=== PATIENT | male | born 1965 | race African-American/Black ===

== ENCOUNTER 2017-10-25 11:22 | Emergency (ER) | payer OTHER ==
--- NOTE | 2017-10-25 12:12 | ER Document Report ---
ED Medical Screen (RME) - General Chief Complaint: Flu Symptoms Stated Complaint: COUGH Time Seen by Provider: 10/25/17 12:10 Mode of Arrival: Ambulatory Information source: Patient TRAVEL OUTSIDE OF THE [place] IN LAST 30 DAYS: No - HPI Patient complains to provider of: cough, fever Onset: Other - pt . with c/o cough, fever, generalized arthralgias and myalgias for the past 2 days. Did not get flu shot this year - Related Data Allergies/Adverse Reactions: No Known Allergies Allergy (Verified 10/25/17 11:22) Physical Exam - Vital signs Vitals: Temp Pulse Resp BP Pulse Ox 100.4 F 97 16 122/77 94 10/25/17 11:27 10/25/17 11:27 10/25/17 11:27 10/25/17 11:27 10/25/17 11:27 Course - Vital Signs Vital signs: Temp Pulse Resp BP Pulse Ox 100.4 F 97 16 122/77 94 10/25/17 11:27 10/25/17 11:27 10/25/17 11:27 10/25/17 11:27 10/25/17 11:27
[2017-10-25 12:37] LABS: ABSOLUTE LYMPHOCYTES (AUTO) 1.1 10^3/uL (0.5-4.7); ABSOLUTE MONOCYTES (AUTO) 0.6 10^3/uL (0.1-1.4); ABSOLUTE NEUT (AUTO) 3.6 10^3/uL (1.7-8.2); BASOPHILS % (AUTO) 0.4 % (0-2); EOSINOPHILS % (AUTO) 0.5 % (0-6); HEMATOCRIT 50.4 % (37.9-51.0); HEMOGLOBIN 17.3 g/dL (13.5-17.0); LYMPHOCYTES % (AUTO) 20.1 % (13-45); MEAN CORPUSCULAR HEMOGLOBIN 29.6 pg (27.0-33.4); MEAN CORPUSCULAR HGB CONC 34.3 g/dL (32.0-36.0); MEAN CORPUSCULAR VOLUME 86 fl (80-97); MONOCYTES % (AUTO) 11.2 % (3-13); PLATELET COUNT 167 10^3/uL (150-450); RED BLOOD COUNT 5.85 10^6/uL (4.35-5.55); SEGMENTED NEUTROPHILS % (AUTO) 67.8 % (42-78); TOTAL CELLS COUNTED % (AUTO) 100 %; WHITE BLOOD COUNT 5.3 10^3/uL (4.0-10.5)
--- NOTE | 2017-10-25 12:38 | RADIOLOGY REPORT (SQ) ---
EXAM DESCRIPTION: CHEST PA/LAT COMPLETED DATE/TIME: 10/25/2017 12:29 pm REASON FOR STUDY: cough COMPARISON: None. TECHNIQUE: Frontal and lateral radiographic views of the chest acquired. NUMBER OF VIEWS: Two view. LIMITATIONS: None. FINDINGS: LUNGS AND PLEURA: No opacities, masses or pneumothorax. No pleural effusion. MEDIASTINUM AND HILAR STRUCTURES: No masses or contour abnormalities. HEART AND VASCULAR STRUCTURES: Heart normal size. No evidence for failure. BONES: No acute findings. HARDWARE: None in the chest. OTHER: No other significant finding. IMPRESSION: NO SIGNIFICANT RADIOGRAPHIC FINDING IN THE CHEST. TECHNICAL DOCUMENTATION: JOB ID: [id number] [employer]- All Rights Reserved Reading location - IP/workstation name: [email or web address]
[2017-10-25 12:52] LABS: ALANINE AMINOTRANSFERASE 59 U/L (21-72); ALBUMIN 4.2 g/dL (3.5-5.0); ALKALINE PHOSPHATASE 45 U/L (38-126); ANION GAP 10 (5-19); ASPARTATE AMINO TRANSFERASE 26 U/L (17-59); BILIRUBIN,DIRECT 0.1 mg/dL (0.0-0.4); BILIRUBIN,TOTAL 0.5 mg/dL (0.2-1.3); BLOOD UREA NITROGEN 14 mg/dL (7-20); CARBON DIOXIDE 27 mmol/L (22-30); CHLORIDE 104 mmol/L (98-107); GLUCOSE 100 mg/dL (75-110); POTASSIUM 4.4 mmol/L (3.6-5.0); SODIUM 141.1 mmol/L (137-145); TOTAL PROTEIN 6.7 g/dL (6.3-8.2)
[2017-10-25] MEDS ORDERED: ACETAMINOPHEN 325 MG TABLET PO ONE (13:22)
--- NOTE | 2017-10-25 13:22 | ER Document Report ---
HPI - HPI Patient complains to provider of: fever, cough, aches Onset: Other - 3 days Quality of pain: Achy Pain Level: 4 Context: 52 yo male with cough, congestion, aches, feve for 3 days. Brand Coordinator chest pain or sob. No abd pain. Associated Symptoms: None Exacerbated by: Denies Relieved by: Denies Similar symptoms previously: Yes Recently seen / treated by doctor: No - ROS ROS below otherwise negative: Yes Systems Reviewed and Negative: Yes All other systems reviewed and negative - CONSTITUTIONAL Constitutional: REPORTS: Fever, Chills - RESPIRATORY Respiratory: REPORTS: Coughing Past Medical History - General Information source: Patient - Social History Smoking Status: Never Smoker Chew tobacco use (# tins/day): No Frequency of alcohol use: None Drug Abuse: None Lives with: Family Family History: Reviewed & Not Pertinent Patient has suicidal ideation: No Patient has homicidal ideation: No - Medical History Medical History: Negative Renal/ Medical History: Denies: Hx Peritoneal Dialysis Surgical Hx: Negative Vertical Provider Document - CONSTITUTIONAL Agree With Documented VS: Yes Exam Limitations: No Limitations General Appearance: No Apparent Distress - INFECTION CONTROL TRAVEL OUTSIDE OF THE [place] IN LAST 30 DAYS: No - HEENT HEENT: Normocephalic, Pharyngeal Erythema. negative: Conjuctival Injection, Tympanic Membrane Red - NECK Neck: Supple. negative: Lymphadenopathy-Left, Lymphadenopathy-Right - RESPIRATORY Respiratory: Breath Sounds Normal, No Respiratory Distress O2 Sat by Pulse Oximetry: 94 - CARDIOVASCULAR Cardiovascular: Regular Rate, Regular Rhythm - GI/ABDOMEN Gastrointestinal: Abdomen Soft, Abdomen Non-Tender, No Organomegaly, Normal Bowel Sounds - MUSCULOSKELETAL/EXTREMETIES Musculoskeletal/Extremeties: MAEW - NEURO Level of Consciousness: Awake, Alert - DERM Integumentary: Warm, Dry, No Rash Course - Re-evaluation Re-evalutation: 10/25/17 14:[address] Cordero concerning the elevated creatinine and mild proteinuria. I gave him 1 L of fluids he does not think the patient needs another loop liter of fluid as long as he orally hydrate at home, he said the patient did not need a CK level drawn. I also gave the patient copies of everything so he can follow -up with his doctor in [place] Friday - Vital Signs Vital signs: Temp Pulse Resp BP Pulse Ox 100.4 F 97 16 122/77 94 10/25/17 11:27 10/25/17 11:27 10/25/17 11:27 10/25/17 11:27 10/25/17 11:27 - Laboratory Result Diagrams: 10/25/17 12:18 10/25/17 12:18 Laboratory results interpreted by me: 10/25/17 10/25/17 12:18 12:18 RBC 5.85 H Hgb 17.3 H Creatinine 1.58 H Est GFR ( Amer) 56 L Est GFR (Non-Af Amer) 46 L Discharge - Discharge Clinical Impression: Influenza-like illness Condition: Good Disposition: HOME, SELF-CARE Instructions: Acetaminophen, Dehydration ([facility]), Influenza ([facility]) [id number] Additional Instructions: See your doctor in [place] on Friday. Continue to hydrate until your urine is very light color Return to the emergency room for any chest pain shortness of breath or recurrence of vomiting and diarrhea. Forms: Return to Work
[2017-10-25] MEDS ORDERED: NORMAL SALINE 1000 ML 1,000 ML IV ONE (13:31)
[2017-10-25 14:17] LABS: APPEARANCE,URINE SLIGHTLY-CLOUDY; BILIRUBIN,URINE NEGATIVE (NEGATIVE); COLOR,URINE YELLOW; GLUCOSE, URINE NEGATIVE (NEGATIVE); KETONES,URINE NEGATIVE (NEGATIVE); LEUKOCYTE ESTERASE,URINE NEGATIVE (NEGATIVE); NITRITE,URINE NEGATIVE (NEGATIVE); PROTEIN,URINE 30 mg/dL (NEGATIVE); URINE SPECIFIC GRAVITY 1.032
[2017-10-25 14:46] VITALS: BP 111/71
== END 2017-10-25 14:43 | disposition home or self-care (01) ==
LOC: ER 11:22
DX: J11.1 Influenza due to unidentified influenza virus with other respiratory manifestations (principal); R80.9 Proteinuria, unspecified; R05 Cough; R50.9 Fever, unspecified; R52 Pain, unspecified
CPT/HCPCS: 99284; 96360; 36415; 85025; 80053; 81001; 71046; J7030